=== PATIENT | male | born 2005 | race Caucasian/White ===

== ENCOUNTER 2024-08-22 04:02 | Emergency (ER) | payer MEDICAID, OTHER ==
[~2024-08-22] VITALS: Ht 167.6 cm; Wt 78.0 kg
[2024-08-22 04:13] VITALS: TEMP 36.9; O2SAT 96
[2024-08-22] MEDS: TETANUS, DIPHTHERIA, PERTUSSIS VAC/PF 0.5ML (>10YR OLD) IM ONE (04:36)
[2024-08-22 04:44] LABS: BASOPHILS % 0.9 % (0.0-2.0); DIFFERENTIAL COMMENT 0; EOSINOPHILS % 0.3 % (0.0-5.0); HEMATOCRIT. 46.8 % (42.0-52.0); HEMOGLOBIN. 16.8 g/dL (14.0-18.0); LYMPHOCYTES % 27.5 % (20.0-50.0); MEAN CORPUSCULAR HEMOGLOBIN 32.8 pg (28.0-32.0); MEAN CORPUSCULAR HGB CONC 35.8 g/dL (31.0-37.0); MEAN CORPUSCULAR VOLUME 91.4 fL (80.0-94.0); MONOCYTES % 6.6 % (2.0-8.0); NEUTROPHILS % 64.7 % (40.0-76.0); PLATELET 278 x1000/uL (130-400); RED BLOOD CELL COUNT 5.12 mill/uL (4.7-6.1); RED CELL DISTRIBUTION WIDTH 13.6 % (11.6-14.6); WHITE BLOOD COUNT 7.5 x1000/uL (4.5-11.0)
[2024-08-22 04:54] LABS: INR 0.9; PROTHROMBIN TIME 10.2 sec (9.6-11.0)
[2024-08-22 05:04] LABS: CHLORIDE 110 mEq/L (98-107); POTASSIUM 3.5 mEq/L (3.5-5.1); SODIUM 145 mEq/L (136-145)
[2024-08-22 05:05] LABS: CARBON DIOXIDE 22 mEq/L (21-32)
[2024-08-22 05:06] LABS: CALCIUM 9.2 mg/dL (8.7-10.4)
[2024-08-22 05:11] LABS: ETHANOL BLOOD 288 mg/dL (<10); GLUCOSE 130 mg/dL (70-105); TROPONIN I HIGH SENSITIVITY 5 ng/L (3.0-53); UREA NITROGEN BLOOD 12 mg/dL (9-23)
[2024-08-22] MEDS ORDERED: IBUP-2029 MT (06:04)
[2024-08-22] MEDS ORDERED: CYCL10TA21 MT (06:04)
[2024-08-22 06:41] VITALS: BP 129/90; PULSE 95; RESP 6; O2SAT 98
== END 2024-08-22 07:07 | disposition home or self-care (01) ==
LOC: ER 04:02
DX: F10.129 Alcohol abuse with intoxication, unspecified (principal); F17.200 Nicotine dependence, unspecified, uncomplicated; M48.02 Spinal stenosis, cervical region; Y90.8 Blood alcohol level of 240 mg/100 ml or more; V89.2XXA Person injured in unspecified motor-vehicle accident, traffic, initial encounter; Y93.89 Activity, other specified; Y92.410 Unspecified street and highway as the place of occurrence of the external cause; Y99.8 Other external cause status
CPT/HCPCS: 80048; 80320; 85025; 85610; 86850; 86900; 86901; 84484; 36415; 73120; 73590; 70450; 71260; 72125; 74177; 90715; 90471; 99291; Q9967; G0480